=== PATIENT | female | born 1995 | race Caucasian/White ===

== ENCOUNTER → 2017-07-21 | Outpatient (CLI) | payer OTHER ==
[~2017-07-21] MED LIST: HYDACE5 PO; IBUPROFEN PRN; RXHYDACE PO
[2017-07-22 20:02] LABS: Hepatitis C Antibody Non Reactive (NR)
== END | disposition home or self-care (01) ==
LOC: LAB 08:56
PROVIDERS: Nurse Practitioner Adult Health
DX: Z01.84 Encounter for antibody response examination (principal)
CPT/HCPCS: 86704; 86706; 86708; 86735; 86762; 86765; 86803; 87340